=== PATIENT | male | born 1990 | race Caucasian/White ===

== ENCOUNTER → 2018-01-20 | Outpatient (CLI) | payer BC ==
--- NOTE | 2018-01-20 11:28 | RAD ---
Right forearm ultrasound, 01/20/2018: HISTORY: Forearm lump The area of clinical concern along the medial aspect of the upper forearm was carefully scanned. There is an oval subcutaneous nodule at this level demonstrating echogenicity similar to that of the subcutaneous fat. This nodule measures 1.3 x 1.3 x 0.4 cm. The features suggest a small lipoma. No other abnormality is seen in this region. IMPRESSION: Probable small subcutaneous lipoma. Clinical surveillance is suggested. Electronically signed by: Jose Juan Hernadez MD (01/20/2018 11:24 AM) [facility]
== END | disposition home or self-care (01) ==
LOC: US 10:26
PROVIDERS: ATTEND Physician Assistant
DX: R22.31 Localized swelling, mass and lump, right upper limb (principal)
CPT/HCPCS: 76882